=== PATIENT | male | born 1960 | race African-American/Black ===

== ENCOUNTER 2025-01-16 01:53 | Emergency (ER) | payer MEDICAID ==
[~2025-01-16] VITALS: Ht 165.1 cm; Wt 69.0 kg
[2025-01-16 02:00] VITALS: O2SAT 98
[2025-01-16] MEDS: TETANUS, DIPHTHERIA, PERTUSSIS VAC/PF 0.5ML (>10YR OLD) IM ONE (04:13)
[2025-01-16] MEDS: LIDOCAINE HCL/EPINEPHRINE 1%-EPI 1:100,000 20ML VIAL INFIL ONE (05:20)
[2025-01-16] MEDS: BACITRACIN ZINC OINT UDPKT TOP ONE (05:23)
[2025-01-16 06:15] VITALS: BP 101/65; PULSE 58; RESP 19; TEMP 36.5; O2SAT 97
[2025-01-16] MEDS: ACETAMINOPHEN 325MG TABLET PO ONE (06:59)
== END 2025-01-16 07:43 | disposition home or self-care (01) ==
LOC: ER 01:53
DX: S01.01XA Laceration without foreign body of scalp, initial encounter (principal); Z88.0 Allergy status to penicillin; W21.11XA Struck by baseball bat, initial encounter; X58.XXXA Exposure to other specified factors, initial encounter; Y93.89 Activity, other specified; Y92.89 Other specified places as the place of occurrence of the external cause; Y99.8 Other external cause status
CPT/HCPCS: 73562; 70450; 70486; 72125; 90715; 12002; 90471; 99285; J2004; Z7610 ×2

== ENCOUNTER 2025-02-07 16:11 | Emergency (ER) | payer OTHER ==
[~2025-02-07] VITALS: Ht 167.6 cm; Wt 70.0 kg
[2025-02-07 16:25] VITALS: O2SAT 100
[2025-02-07 20:29] VITALS: BP 130/89; PULSE 86; RESP 20; TEMP 36.6; O2SAT 97
== END 2025-02-07 20:34 | disposition home or self-care (01) ==
LOC: ER 16:11
DX: S01.01XD Laceration without foreign body of scalp, subsequent encounter (principal); Z48.02 Encounter for removal of sutures; Z88.0 Allergy status to penicillin; X58.XXXD Exposure to other specified factors, subsequent encounter
CPT/HCPCS: 99281; 99282

== ENCOUNTER 2025-04-23 08:15 | Emergency (ER) | payer OTHER ==
[~2025-04-23] VITALS: Ht 167.6 cm; Wt 72.0 kg
[2025-04-23 08:21] VITALS: BP 109/85; PULSE 96; RESP 18; TEMP 36.9; O2SAT 97; O2SAT 99
== END 2025-04-23 08:46 | disposition home or self-care (01) ==
LOC: ER 08:16
DX: S01.01XD Laceration without foreign body of scalp, subsequent encounter (principal); Z88.0 Allergy status to penicillin; X58.XXXD Exposure to other specified factors, subsequent encounter
CPT/HCPCS: 99281